=== PATIENT | female | born 1940 | race Caucasian/White ===

== ENCOUNTER 2024-11-02 17:50 | Inpatient (IN) | payer OTHER, MEDICARE ==
[~2024-11-02] VITALS: Ht 165.1 cm; Wt 54.4 kg
[2024-11-02 17:57] VITALS: O2SAT 100
[2024-11-02 18:39] LABS: HEMATOCRIT. 37.0 % (36.0-48.0); HEMOGLOBIN. 12.0 g/dL (12.0-16.0); MEAN PLATELET VOLUME 7.4 fl (7.4-10.4); PLATELET 345 x1000/uL (130-400); RED BLOOD CELL COUNT 4.09 mill/uL (4.2-5.4); RED CELL DISTRIBUTION WIDTH 14.2 % (11.6-14.6)
[2024-11-02 18:47] LABS: INR 1.0
[2024-11-02 18:50] LABS: CREATININE 1.9 mg/dL (0.6-1.0); UREA NITROGEN BLOOD 40 mg/dL (9-23)
[2024-11-02 18:51] LABS: TROPONIN I HIGH SENSITIVITY 17 ng/L (3.0-34)
[2024-11-02 18:52] LABS: ASPARTATE AMINOTRANSFERASE 25 IU/L (<34); BILIRUBIN DIRECT 0.1 mg/dL (<=3.0); BILIRUBIN TOTAL 0.6 mg/dL (0.1-1.0); PROTEIN TOTAL 6.0 g/dL (6.0-8.3)
[2024-11-02 19:05] LABS: BAND% 2.0 % (1.0-6.0); LYMPHOCYTES % MANUAL 5.0 % (20.0-60.0); MONOCYTES % MANUAL 6.0 % (2.0-8.0); NEUTROPHILS % MANUAL 87.0 % (45.0-75.0); PLATELET ESTIMATE NORMAL
[2024-11-02] MEDS: SODIUM CHLORIDE 0.9% 1,000 ML IV ONE ×2 (19:21→21:52)
[2024-11-02] MEDS: ONDANSETRON HCL 4MG/2ML INJ IV ONE (19:21)
[2024-11-02] MEDS: PANTOPRAZOLE SODIUM 40 MG/VIAL IV ONE (19:21)
[2024-11-02] MEDS ORDERED: CEFTRIAXONE 1,000 MG in DEXT 5% WATER 100 ML IV SCH (21:30)
[2024-11-02] MEDS: CEFTRIAXONE 1GM/50ML 50ML IV SCH (21:51)
[2024-11-02] MEDS: METRONIDAZOLE 500 MG PREMIX 100 ML IV ONE (22:03)
[2024-11-02] MEDS ORDERED: IOHEXOL-350 100 ML BOTTLE ONE (23:21)
[2024-11-03 00:20] VITALS: BP 143/73; PULSE 98; RESP 19; TEMP 37.0296
[2024-11-03] MEDS ORDERED: DEXTROSE 50% WATER 50ML SYRINGE IV PRN (01:00)
[2024-11-03] MEDS ORDERED: ONDANSETRON HCL 4MG/2ML INJ IV PRN (01:00)
[2024-11-03] MEDS ORDERED: DOCUSATE SODIUM 100MG CAPSULE PO PRN (01:00)
[2024-11-03] MEDS ORDERED: ACETAMINOPHEN 325MG TABLET PO PRN (01:00)
[2024-11-03] MEDS ORDERED: IPRATROPIUM/ALBUTEROL 0.5-3(2.5)MG/3ML NEB HHN PRN (01:00)
[2024-11-03] MEDS ORDERED: CLONIDINE 0.1MG TABLET PO PRN (01:00)
[2024-11-03] MEDS ORDERED: GUAIFENESIN 200MG/10ML SUGAR FREE UDC PO PRN (01:00)
[2024-11-03] MEDS ORDERED: MAGNESIUM/ALUMINUM HYDROXIDE/SIMETHICONE 30ML UDC PO PRN (01:00)
[2024-11-03 01:41] LABS: TROPONIN I HIGH SENSITIVITY 21 ng/L (3.0-34)
[2024-11-03] MEDS ORDERED: TRANEXAMIC ACID 1,000MG/10ML IV NR (02:30)
[2024-11-03 04:00] VITALS: BP 139/59; PULSE 87; RESP 19; TEMP 36.1; O2SAT 96
[2024-11-03] MEDS: PANTOPRAZOLE SODIUM 40 MG/VIAL IV SCH (05:37)
[2024-11-03] MEDS: LEVOFLOXACIN 750MG PREMIX 150 ML IV NR (05:41)
[2024-11-03] MEDS: DEXT 5%/0.45% NACL 1000ML 1,000 ML IV SCH (05:43)
[2024-11-03] MEDS: METRONIDAZOLE 500 MG PREMIX 100 ML IV SCH (05:44)
[2024-11-03] MEDS: KETOROLAC 15MG/ML VIAL IV NR (05:47)
[2024-11-03] MEDS: BLOOD SUGAR DIAGNOSTIC STRIP TEST SCH (07:22)
[2024-11-03] MEDS: INSULIN LISPRO 100 UNITS/ML SUBCUT SCH (07:50)
[2024-11-03 08:00] VITALS: BP 120/57; PULSE 85; RESP 17; TEMP 36.3; O2SAT 98
[2024-11-03 09:10] LABS: HEMATOCRIT. 29.5 % (36.0-48.0); HEMOGLOBIN. 9.8 g/dL (12.0-16.0); MEAN PLATELET VOLUME 7.5 fl (7.4-10.4); PLATELET 280 x1000/uL (130-400); RED BLOOD CELL COUNT 3.27 mill/uL (4.2-5.4); RED CELL DISTRIBUTION WIDTH 14.7 % (11.6-14.6)
[2024-11-03 09:44] LABS: CREATININE 1.8 mg/dL (0.6-1.0); UREA NITROGEN BLOOD 42.0 mg/dL (9-23)
[2024-11-03 09:47] LABS: T4 FREE 0.98 ng/dL (0.89-1.76)
[2024-11-03 12:00] VITALS: BP 120/62; PULSE 81; RESP 16; TEMP 36.6; O2SAT 97
[2024-11-03 14:25] LABS: LYMPHOCYTES % MANUAL 6.0 % (20.0-60.0); MONOCYTES % MANUAL 3.0 % (2.0-8.0); NEUTROPHILS % MANUAL 91.0 % (45.0-75.0); PLATELET ESTIMATE NORMAL
[2024-11-03 16:00] VITALS: BP 123/67; PULSE 76; RESP 17; TEMP 36.3; O2SAT 98
[2024-11-05] MEDS ORDERED: LEVOFLOXACIN 500MG PREMIX 100 ML IV SCH (03:00)
== END 2024-11-03 22:40 | disposition short-term general hospital (02) | DRG 378 ==
LOC: ER 17:50 → 6WST 21:51 → EDBEDREQTM 22:05 → EDBEDREQ 22:05 → ENRESERV 22:10 → 6WST 23:45
PROVIDERS: ADMIT Internal Medicine; ATTEND Internal Medicine
DX: K62.5 Hemorrhage of anus and rectum (principal); E87.20 Acidosis, unspecified; N17.9 Acute kidney failure, unspecified; K52.9 Noninfective gastroenteritis and colitis, unspecified; D64.9 Anemia, unspecified; E78.5 Hyperlipidemia, unspecified; E83.52 Hypercalcemia; I12.9 Hypertensive chronic kidney disease with stage 1 through stage 4 chronic kidney disease, or unspecified chronic kidney disease; J45.909 Unspecified asthma, uncomplicated; N18.9 Chronic kidney disease, unspecified; Z88.0 Allergy status to penicillin; Z79.899 Other long term (current) drug therapy
CPT/HCPCS: 36415; 74174; 76830; 76856; 80048; 80076; 82550; 82962; 83036; 83605; 83735; 84439; 84443; 84484; 85014; 85018; 85025; 99285; J0696; J1885; J1956; J2405; J2470; J3490; J7030; Q9967